=== PATIENT | male | born 1970 | race Caucasian/White ===

== ENCOUNTER 2020-12-03 12:48 | Emergency (ER) | payer MEDICAID ==
[~2020-12-03] VITALS: Ht 172.7 cm; Wt 77.1 kg
[2020-12-03 12:56] VITALS: BP 118/42
--- NOTE | 2020-12-03 13:32 | NUR ---
TO ER BED 6
--- NOTE | 2020-12-03 13:45 | NUR ---
DR. VIRAMONTES BEDSIDE PERFORMING US WITH PATIENT
--- NOTE | 2020-12-03 13:45 | NUR ---
50 Y MALE REFERED FROM CLINIC DUE TO FRACTURE OF R ANKLE. PT HAS C/O OF R ANKLE/FOOT PAIN AND STATED HIS ACHILLES TENDON IS RUPTURED. DENIES ANY TRAUMA OR FALL. STATED PAIN IS MILD, BUT HE IS UNABLE TO AMBULATE WITHOUT ASSISTANCE. SWELLING NOTED ON R ANKLE. PMH: DENIES NKA
[2020-12-03] MEDS ORDERED: NAPR-54 PO (13:55)
--- NOTE | 2020-12-03 14:06 | NUR ---
PT PLACED IN RIGHT POSTERIOR SHORT LEG SPLINT WRAPPED WITH 3" ROMULO WRAPS X3, [facility] WNL BEFORE AND AFTER.
--- NOTE | 2020-12-03 14:26 | NUR ---
Patient discharged with v/s stable. Written and verbal after care instructions ABOUT ANKLE SPRAIN AND ACHILLES TENDON TEAR given and explained. Patient alert, oriented and verbalized understanding of instructions. Ambulatory WITH SCOOTER to car. All questions addressed prior to discharge. ID band removed. Patient advised to follow up with PMD. Rx of given. Patient educated on indication of medication including possible reaction and side effects. Opportunity to ask questions provided and answered.
== END 2020-12-03 14:26 | disposition home or self-care (01) ==
LOC: MED 12:48
DX: S86.022A Laceration of left Achilles tendon, initial encounter (principal); S93.402A Sprain of unspecified ligament of left ankle, initial encounter; Z79.899 Other long term (current) drug therapy; Z98.890 Other specified postprocedural states; X58.XXXA Exposure to other specified factors, initial encounter; Y93.89 Activity, other specified; Y92.89 Other specified places as the place of occurrence of the external cause; Y99.8 Other external cause status
CPT/HCPCS: 29515; 73610; 99283